=== PATIENT | male | born 1965 | race Hispanic/Latino ===

== ENCOUNTER 2023-02-16 17:04 | Emergency (ER) | payer OTHER ==
[~2023-02-16] VITALS: Ht 162.6 cm; Wt 62.6 kg
[2023-02-16 18:02] LABS: BASOPHILS % (AUTO) 0.4 % (0.0-5.0); EOSINOPHILS % (AUTO) 5.4 % (0.0-8.0); HEMATOCRIT 24.1 % (42-54); LYMPHOCYTES % (AUTO) 15.6 % (21.0-51.0); MEAN CORPUSCULAR HEMOGLOBIN 30.8 pg (27.0-33.0); MEAN CORPUSCULAR HGB CONC 32.4 g/dL (32.0-36.0); MEAN CORPUSCULAR VOLUME 95.3 fL (79-99); MONOCYTES % (AUTO) 6.5 % (3.0-13.0); NEUTROPHILS % (AUTO) 71.7 % (40.0-77.0); PLATELET COUNT (AUTO) 149 K/uL (130-400); RED BLOOD CELL COUNT(AUTO) 2.53 MIL/uL (4.50-6.20); RED CELL DISTRIBUTION WIDTH 17.2 % (11.0-15.5); WHITE BLOOD COUNT (AUTO) 7.4 K/uL (4.8-10.8)
[2023-02-16 18:16] LABS: POTASSIUM 4.6 mmol/L (3.5-5.1)
[2023-02-16 18:21] LABS: ALBUMIN 2.6 g/dL (3.5-5.0); MAGNESIUM 1.5 mg/dL (1.80-2.40); TOTAL PROTEIN, SERUM 7.4 g/dL (6.0-8.3)
[2023-02-16 19:04] LABS: INR 0.93 (0.85-1.15); PROTHROMBIN TIME 10.8 SEC (9.6-11.6)
[2023-02-16 19:05] LABS: PARTIAL THROMBOPLASTIN TIME 34.2 SEC (26.3-35.5)
[2023-02-16] MEDS ORDERED: MAGNESIUM OXIDE 400 MG TABLET PO ONE (20:00)
[2023-02-16] MEDS ORDERED: POLY17PO4 PO (20:44)
[2023-02-16] MEDS ORDERED: FERS325 PO (20:44)
[2023-02-16 20:46] VITALS: BP 139/84
== END 2023-02-16 20:53 | disposition home or self-care (01) ==
LOC: EDH 17:04
DX: D64.9 Anemia, unspecified (principal); I10 Essential (primary) hypertension; F31.9 Bipolar disorder, unspecified
CPT/HCPCS: 36415; 80053; 83735; 84484; 85025; 85610; 85730; 86850; 86900; 86901